=== PATIENT | male | born 1935 | race Caucasian/White ===

== ENCOUNTER → 2017-02-26 | Outpatient (CLI) | payer BC, OTHER ==
[~2017-02-26] MED LIST: ACET-1256 PO; CMBIN INH; CMD6 PO; ECHI125T PO; FRRS300 PO; GLCSUNK PO; MULT-506 PO; OXYC-57 PO
== END | disposition home or self-care (01) ==
LOC: C.LABSPEC 16:23
PROVIDERS: ATTEND Dermatology
DX: L98.9 Disorder of the skin and subcutaneous tissue, unspecified (principal)

== ENCOUNTER → 2017-03-05 | Day surgery (SDC) | payer OTHER | END | disposition home health service (06) | LOC: C.ACU 13:42 | PROVIDERS: ATTEND Dermatology | DX: L98.9 Disorder of the skin and subcutaneous tissue, unspecified (principal) ==